=== PATIENT | female | born 1990 | race Caucasian/White ===

== ENCOUNTER 2024-07-25 09:37 | Emergency (ER) | payer BC, MEDICAID ==
[~2024-07-25] VITALS: Ht 165.1 cm; Wt 104.3 kg
[2024-07-25] MEDS ORDERED: IBUPROFEN 600 MG TABLET ONE (10:09)
[2024-07-25] MEDS: IBUPROFEN 600 MG TABLET PO ONE (10:13)
[2024-07-25 11:14] VITALS: BP 119/61; TEMP 97.9; O2SAT 98
== END 2024-07-25 11:14 | disposition home or self-care (01) ==
LOC: ER 09:37
DX: S92.514A Nondisplaced fracture of proximal phalanx of right lesser toe(s), initial encounter for closed fracture (principal); W22.8XXA Striking against or struck by other objects, initial encounter; Y93.89 Activity, other specified; Y92.89 Other specified places as the place of occurrence of the external cause; Y99.8 Other external cause status
CPT/HCPCS: 73630-TC